=== PATIENT | male | born 1940 | race Native Hawaiian/Other Pacific Islander ===

== ENCOUNTER 2017-06-02 08:03 | Observation (INO) | payer MEDICARE, OTHER ==
[~2017-06-02] VITALS: Ht 170.2 cm; Wt 65.8 kg
[2017-06-02] VITALS (9 sets, daily range): BP systolic 90–129; BP diastolic 57–80; PULSE 82–97; RESP 16–21; O2SAT 97–100
--- NOTE | 2017-06-02 08:03 | ED.REPORT ---
HPI-General Illness Date of Service Jun 02, 2017 ED Provider: Haroon Ceja Patient is a 72 year old male with a hx of CAD, CHF, VT, and atrial tachyarrhythmias who presents to the ED via EMS complaining of dizziness onset this morning. He got up to use the restroom this morning when he felt dizzy and slumped to the floor. His son found him on the floor uninjured this morning. His dizziness is worse with his eyes open, moving, and sitting up. Associated symptoms include lightheadedness. He denies nausea, chest pain, SOB, headache, fever, cough, dysuria, or any other symptoms. Patient is a poor historian. Per records, he has been taking amiodarone for the past 12 days and this is his only filled prescription. Per son, he was recently hospitalized for fluid overload. He was seen by his mri specialist and PCP after his hospitalization and his medications were changed. He also had a recent sinus infection and was put on abx. 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 He has a [employer] Pacemaker Nursing Notes Stated Complaint: SYNCOPAL Nursing Notes Reviewed: Yes Allergies: Coded Allergies: No Known Allergies (Unverified , 06/02/17) Scheduled ([metoprolol XL]) 12.5 MG PO DAILY Amiodarone (Pacerone) 400 Mg Tablet 200 MG PO BID Furosemide (Lasix) 20 Mg Tablet 0 PO fridays Unknown dose Magnesium Oxide (Magnesium Oxide) 250 Mg Tablet 0 PO DAILY Rosuvastatin Calcium (Crestor) 5 Mg Tablet 0 PO DAILY / tab, unknown dose Rosuvastatin Calcium (Rosuvastatin Calcium) 5 Mg Tablet 0 PO DAILY General Time Seen by MD: 08:11 Chief Complaint Dizziness Hx Obtained From: Patient, Son Arrived By: Ambulance Sudden in Onset?: Yes Onset Occurred: 1 - 4 hours ago Symptom Duration: Since onset Recent Healthcare: Recent doctor visit, Recent hospitalization Similar Sx Previous: No Past Medical History Past Medical History Notes: PCP Héctor Hobbs [employer] [facility]. [facility] CODE STATUS: ATTEMPT CPR, no life support or intubation Past Medical History CAD CHF VT atrial tachyarrhythmias Past Surgical History CABG ablation Reports: Appendectomy Reports: Pacemaker insertion Smoking History Never Smoker Social History Alcohol Use: Denies alcohol use Review of Systems Full Review of Systems Constitutional: Denies: Fever Respiratory: Denies: Non-productive cough, Shortness of breath Cardiovascular: Denies: Chest pain GI: Denies: Nausea Male: Denies Dysuria Neurologic: Reports: Dizziness, Lightheaded, Denies: Headache Complete sys rev & neg: except as marked. Physical Exam Vital Signs Vital Signs Date Time Temp Pulse Resp B/P Pulse Ox O2 Delivery O2 Flow Rate FiO2 06/02/17 11:27 93 21 114/62 100 Room Air 06/02/17 09:17 91 18 129/80 99 Room Air 06/02/17 08:08 37.0 90 19 120/77 99 Room Air Initial VS: Reviewed, Vital signs normal Head / Eyes: Atraumatic, Normocephalic Neck: Full range of motion Abdomen / GI: Soft, Non-tender Skin: Warm, Dry Neurologic: Alert, Oriented, Nonfocal Psychiatric: Mood/affect normal, Behavior normal, Normal thought content General/Constitutional: Awake, Alert Distress / Hydration: Positive: Distress moderate Eyes closed Respiratory / Chest: No respiratory distress Rales in bases bilaterally Cardiovascular: Heart rate NL, Regular rhythm, Heart sounds NL Paced Interpretation & Diagnostics Lab Results Interpretation Result Diagram: 06/02/17 0830 06/02/17 0830 Test 06/02/17 08:30 White Blood Count 7.4th/mm3 (3.8-10.1) Red Blood Count 4.11mil/mm3 (4.40-5.80) Hemoglobin 13.7g/dL (13.8-17.2) Hematocrit 40.7% (41.0-50.0) Mean Corpuscular Volume 99.0fL (81-100) Mean Corpuscular Hemoglobin 33.3pg (27.0-35.0) Mean Corpuscular Hemoglobin Concent 33.7% (32.0-37.0) Red Cell Distribution Width 13.5% (12.3-15.4) Platelet Count 241bil/L (150-400) Neutrophils (%) (Auto) 76.9% (40-74) Lymphocytes (%) (Auto) 13.0% (14-46) Monocytes (%) (Auto) 9.3% (4-12) Eosinophils (%) (Auto) 0.4% (0-5) Basophils (%) (Auto) 0.3% (0-3) Prothrombin Time 13.1sec (8.1-12.5) Prothromb Time International Ratio 1.22ratio Sodium Level 139mEq/L (134-144) Potassium Level 4.8mEq/L (3.5-5.2) Chloride Level 103mEq/L (97-108) Carbon Dioxide Level 23mmol/L (18-29) Blood Urea Nitrogen 21mg/dL (8-27) Creatinine 1.61mg/dL (0.76-1.27) Estimat Glomerular Filtration Rate 45mL/min (>59) Glucose Level 109mg/dL (60-99) Calcium Level 8.9mg/dL (8.5-10.1) Magnesium Level 2.5mg/dL (1.6-2.6) Total Bilirubin 0.7mg/dL (0.0-1.2) Aspartate Amino Transf (AST/SGOT) 153U/L (0-50) Alanine Aminotransferase (ALT/SGPT) 189U/L (0-44) Alkaline Phosphatase 78U/L (25-160) Troponin T 0.032ug/L (0.0-0.011) Pro-B-Type Natriuretic Peptide 1139pg/mL (0-486) Total Protein 7.4g/dL (6.4-8.4) Albumin 3.6g/dL (3.4-5.0) ECG Interpretation ECG Interpretation: ventricularly paced at a rate of 89 Time: 08:22 Interpreted by: ED physician ECG Interpretation: Ventricular-paced at rate 90 Time: 10:17 Interpreted by: ED physician Repeat ECG: Repeat ECG unchanged X-Ray Chest Interpretation Chest Xray Interpretation: IMPRESSION: No acute cardiopulmonary disease. Dictated by: Patric Gill M.D. on 06/02/2017 at 9:45 Approved by: Patric Gill M.D. on 06/02/2017 at 9:46 View: Portable, 1 view Interpretation / Wet Read by: Interpret - Radiologist CT Head Interpretation IMPRESSION: 1. No acute intracranial disease process. 2. Severe mucosal thickening involving the left frontal sinus and left ethmoid air cells. Please correlate with clinical data to exclude sinusitis. Dictated by: Aida Paniagua MD, PhD on 06/02/2017 at 9:10 Approved by: Aida Paniagua MD, PhD on 06/02/2017 at 9:13 Study: Head CT no contrast Interpretation / Wet Read by: Interpret - Radiologist Re-Eval/Medical Decision Med Decision/Clinical Course Near syncope with an indeterminate troponin and an extensive cardiac history. Discussed with the patient's cardiology group through [facility] who recommended admission and observation. Aspirin given. Time of Eval: 10:48 Re-Evaluation/Progress Note: Rechecked pt who is feeling better. He passed his road test and was not dizzy during it. Time of Eval: 11:20 Re-Evaluation/Progress Note: Discussed plan for admisison. Patient understands and agrees with plan. All questions addressed at this time. Time of Eval: 11:58 Re-Evaluation/Progress Note: Discussed pt's code status. He would like CPR but not life support or intubation. Consultation #1: Consulted With: Cardiology Call Returned at: 11:11 Barrel Header: Agrees with eval, Agrees with plan Note: Discussed pt's case with On-call for patient's mri specialist. Have device interrogated, UA for UTI , and Observe and trend troponin. Suggests admit Consultation #2: Referral / Consult Name: Ryan Carver MD Consulted With: Hospitalist Call Returned at: 11:43 Barrel Header: Will see patient, Agrees with eval, Agrees with plan, Accepts admit Note: Discussed pt's case. Accepts admit. Counseled Regarding: Diagnosis, Lab results, Need for admission Discharge & Departure Primary Impression: Near syncope Disposition: ADMITTED TO HOSPITAL Discharge Condition All VS Reviewed: Yes Condition: Stable Referrals: OTHER,PHYSICIAN Scribe Attestation Portions of this note were transcribed by Jeanmarie Thakkar. I, Dr. Ceja personally performed the history, physical exam and medical decision-making; I reviewed and confirmed the accuracy of the information in the transcribed note. Signed by: Clarisse Morin, 06/02/17 Haroon Ceja DO Jun 02, 2017 08:03 JEANMARIE THAKKAR Jun 02, 2017 08:26
[2017-06-02] MEDS ORDERED: 0.9% Sodium Chloride 500 ML IV ONE (08:25)
[2017-06-02 08:46] LABS: BASOPHILS % (AUTO) 0.3 % (0-3); EOSINOPHILS % (AUTO) 0.4 % (0-5); MONOCYTES % (AUTO) 9.3 % (4-12); Mean Corpuscular Hemoglobin 33.3 pg (27.0-35.0); NEUTROPHILS % (AUTO) 76.9 % (40-74); Platelet Count 241 bil/L (150-400)
[2017-06-02] MEDS ORDERED: AMIO400T PO (08:56)
[2017-06-02 08:59] LABS: INR 1.22 ratio
[2017-06-02 09:07] LABS: TROPONIN T 0.032 ug/L (0.0-0.011)
--- NOTE | 2017-06-02 09:15 | DRSVH ---
PROCEDURE: CT BRAIN WITHOUT CONTRAST ([id number]) INDICATIONS: dizziness TECHNIQUE: Noncontrast 4.5 mm thick angled axial sections acquired from the foramen magnum to the vertex, with c oronal reformats. COMPARISON: None. FINDINGS: Image quality: Excellent. CSF spaces: Basal cisterns are patent. No extra-axial fluid collections. The ventricles are symmet kasi in size and shape. Brain: No intracranial bleeds or masses. There is cerebral volume loss for age, with resultant vent ricular and sulcal prominence. There are periventricular and deep white matter chronic small vessel ischemic changes. There is intracranial internal carotid artery and vertebral artery atherosclerosis . Skull and face: Calvarium and visualized facial bones appear intact, without suspicious lesions. Sinuses: Mucosal thickening noted in the left frontal sinus and the left ethmoid air cells.. mastoids are clear. IMPRESSION: 1. No acute intracranial disease process. 2. Severe mucosal thickening involving the left frontal sinus and left ethmoid air cells. Please del elate with clinical data to exclude sinusitis. Dictated by: Aida Paniagua MD, PhD on 06/02/2017 at 9:10 Approved by: Aida Paniagua MD, PhD on 06/02/2017 at 9:13
[2017-06-02 09:18] LABS: Magnesium 2.5 mg/dL (1.6-2.6)
--- NOTE | 2017-06-02 09:47 | DRSVH ---
PROCEDURE: X-RAY CHEST ONE VIEW, PORTABLE ([id number]) INDICATIONS: near syncope TECHNIQUE: One view of the chest was acquired. COMPARISON: None. FINDINGS: Surgical changes and devices: Sternotomy wires, CABG clips and cardiac AICD. Lungs and pleura: No pleural effusions or pneumothorax. Lungs are clear. Mediastinum: Mediastinal contours appear normal. Heart size is normal. Possible hiatal hernia alth ough this could BE confirmed with upper GI series as clinically necessary. Bones and chest wall: No suspicious bony lesions. Overlying soft tissues appear unremarkable. IMPRESSION: No acute cardiopulmonary disease. Dictated by: Patric Gill M.D. on 06/02/2017 at 9:45 Approved by: Patric Gill M.D. on 06/02/2017 at 9:46
[2017-06-02] MEDS ORDERED: FURO-129 PO (09:54)
[2017-06-02] MEDS ORDERED: METOPROLOL PO (09:54)
[2017-06-02] MEDS ORDERED: ROSU5TAB9 PO (09:54)
[2017-06-02] MEDS ORDERED: MAGN250T37 PO (09:54)
[2017-06-02] MEDS ORDERED: ROSU5TAB PO (09:54)
[2017-06-02] MEDS ORDERED: Ondansetron 2 mg/mL 2 mL Inj IVPUSH PRN (12:00)
[2017-06-02] MEDS ORDERED: Alum-Mag Hydrox-Simeth 30 mL Suspension PO PRN (12:00)
--- NOTE | 2017-06-02 14:00 | NUR ---
Admit Pt admitted to [facility] [place] 3003 at approx 1220 from the ED. Report received from Estelle Luis RN. Pt alert and oriented upon arrival. Arrived in ED cart, accompanied by interventional radiology technologist and son. Pt denies any chest pain, dizziness, headache. Able to answer admit questions with the help of son. VS and weight obtained. Oriented to room, bed, call light. Admit completed by this RN. Awaiting some details from a few of pt's home medications from son. Awaiting further orders. Bed low and locked. CAll light in reach.
[2017-06-02] MEDS ORDERED: AMIO200T PO (14:15)
[2017-06-02] MEDS ORDERED: FUR20 PO (14:17)
[2017-06-02] MEDS ORDERED: ASPI-973 PO (14:22)
[2017-06-02] MEDS ORDERED: MULT-1073 PO (14:23)
--- NOTE | 2017-06-02 15:18 | PCM.HPMED ---
Subjective Date of Service Jun 02, 2017 Primary Provider: Admitting Physician: Ryan Carver MD Primary Care Physician: Benson Reece MD Attending Physician: Ryan Carver MD Chief Complaint: Dizziness History of Present Illness: Patient is a 76 yo male with pmh of CAD (s/p quadraple bipass), VTs and Atrial tachyarrhythmias (s/p ablation and pacemaker , 100% paced), CHF (EF ~25% as per son), who is being admitted due to a spell of dizziness which started last night. As per patient and his son (bedside), patient woke up in the middle of night to go to bathroom, felt dizzy (room spinning + fear of passing out), crawled on the floor, pulled the blankets and slept there. In the morning, son found him like that. Tried to get him up, however he was still very dizzy. Patient does endorse feeling the room spinning around him. Denies nausea. Denies generalized weakness or palpitations. Denies falling or hitting his head. Patient was then taken by ambulance to ER. In ER he was given fluids and meclizine, and it helped with his dizziness. Allergies Coded Allergies: No Known Allergies (Unverified , 06/02/17) Constitutional: No: Chills, Fever, Malaise, Other, Sweats, Weakness Eyes: Denies: Blurred Vision, Conjunctive Inflammation, Double Vision, Eyelid Inflammation, Other, Pain, Pigmentosa, Redness, Retinitis, Vision Changes ENT: Denies: Dental Problems, Dysphagia, Ear Discharge, Ear Pain, Hoarseness, Membranes Dry, Nasal Congestion, Nose Discharge, Nose Pain, Other, Throat Pain, Tinnitus, Ulcers/Sores in Mouth Cardiovascular: Reports: Lt Headedness Respiratory: Denies: Cough, Hemoptysis, Other, Pleuritic Chest Pain, SOB with Exertion, Shortness of Breath, Sputum, Wheezing Gastrointestinal: Denies: Abdominal Pain, Change in Appetite, Constipation, Diarrhea, Heartburn, Hematochezia, Melena, Nausea, Other, Use of Laxatives, Vomiting Genitourinary: Denies: Anuria, Change in Frequency, Dysuria, Hematuria, Incontinence, Nocturia, Other, Retention Musculoskeletal: Denies: Back Pain, Deformity, Limitation of Function, Neck Pain, Other, Redness, Shoulder Pain, Swelling Skin: Denies: Bruising, Dry or Flakiness, Jaundice, Lesions, Other, Rash, Scars , Ulcers Neurological: Reports: Dizziness Psychologic: Denies: Agitation, Disorientation, Excitation, Giddiness, Hostile , Insomnia, Instability, [place], Nervousness, Night Terrors, Other, Perseveration , Phobia, Sexual Disturbances Endocrine: Denies: Change in Appitite, Diaphoresis, Intolerent to Heat/Cold, Polydipsea, Polyuria PMH CAD CHF VT atrial tachyarrhythmias Surgical History CABG ablation Reports: Appendectomy Reports: Pacemaker insertion Social History Hx Alcohol Use: No Hx Substance Use: No Smoking Status: Never Smoker Exam Vital Signs Vital Sign - Last Date Time Temp Pulse Resp B/P Pulse Ox O2 Delivery O2 Flow Rate FiO2 06/02/17 12:34 92 06/02/17 12:25 36.5 18 123/75 99 Room Air Exam Head / Eyes: Atraumatic, Normocephalic Neck: Full range of motion Abdomen / GI: Soft, Non-tender Skin: Warm, Dry Neurologic: Alert, Oriented, Nonfocal, Stacie halpike negative for nystagmus Psychiatric: Mood/affect normal, Behavior normal, Normal thought content General/Constitutional: Awake, Alert Lab and Diagnostics Result Diagram: 06/02/17 0830 06/02/17 0830 X-Rays, CTs and MRIs HEAD CT CT head IMPRESSION: 1. No acute intracranial disease process. 2. Severe mucosal thickening involving the left frontal sinus and left ethmoid air cells. Please correlate with clinical data to exclude sinusitis. Assessment & Plan Patient is a 76 yo male with pmh of CAD (s/p quadraple bipass), VTs and Atrial tachyarrhythmias (s/p ablation and pacemaker , 100% paced), CHF (EF ~25% as per son), who is being admitted due to a spell of dizziness which started last night. > Dizziness w vertigo - ddx: BPV vs arrhythmia vs orthostatic hypotension (2/2 dehydration) - considering patient's symptoms : likely positional vertigo, will get PT , continue meclizine - Tele monitoring , and evaluation of the pacemaker - patient is euvolemic at this point, will continue hydration by orals, and trend serum Cr. - CT head -ve for any acute intracranial process except for sinusitis - Labs not indicative of infection, however considering age and symptoms, urinalysis pending > KAUSHIK on CKD ? - serum cr elevated, baseline unknown, likely senior living CKD - will monitor cr > CHF , systolic (EF 25%) - will get echo to evaluate the heart function - patient euvolemic at this time, CXR not showing any signs of fluid overload - no edema - continue home regimen : lasix 10mg q weekly > VT and atrial arrhythmias - 100% paced, will get the pacemaker evaluated > CAD (s/p quadraple therapy) - continue home meds Pain Evaluation: Adequate Pain Control VTE Prophylaxis: Sub-Q Heparin (Unfractionated) Time spent 45 mins Ryan Carver MD Jun 02, 2017 14:23
[2017-06-02 16:44] LABS: APPEARANCE,URINE CLEAR (CLEAR,HAZY); COLOR,URINE YELLOW (YELLOW); OCCULT BLOOD,URINE TRACE (NEGATIVE); PH,URINE 6.5 (5.0-8.0); UROBILINOGEN,URINE NORMAL (NORMAL)
[2017-06-02] MEDS: Heparin 5,000 Unit/mL Inj SUBQ SCH (17:05)
--- NOTE | 2017-06-02 17:38 | DRSVH ---
[facility] [address] [place] [address] Echocardiogram Report Name: LENNY LAN CStudy Date: 06/02/2017 Height: 67 in Hospital Exam Location: [facility] Weight: 145 lb Gender: Male BSA: 1.8 m2 : 1940 Age: 76 yrs BP: 123/75 mmHg Reason For Study: Syncope Ordering Physician: Performed By: Ella Ramsey Interpretation Summary The left ventricle is moderately dilated. Left ventricular systolic function is severely reduced. The ejection fraction is estimated to be 15-20%. There is severe hypokinesis to akinesis along the inferolateral and inferior wall. There is moderate hypokinesis along the anterolateral wall. The rest of LV wall is mildly hypokinetic. The right ventricle is normal size. There is a pacemaker lead in the right ventricle. Right ventricular systolic function is at the lower limits of normal. The right ventricular systolic pressure is estimated at 28 mmHg assuming a right atrial pressure of 3 mm Hg. The left atrium is severely dilated. The right atrium is moderately dilated. There is mild to moderate aortic regurgitation. There is no other significant valvular heart disease. The aortic root is mildly dilated. Procedure: A two-dimensional transthoracic echocardiogram with color flow and Doppler was performed. The study quality was technically good. There is no prior echocardiogram noted for this patient. The patient has a paced rhythm. The heart rate ranged between 90-99 bpm during the study. Left Ventricle: The left ventricle is moderately dilated. There is normal left ventricular wall thickness. Left ventricular systolic function is severely reduced. The ejection fraction is estimated to be 15-20%. There is severe hypokinesis to akinesis along the inferolateral and inferior wall. There is moderate hypokinesis along the anterolateral wall. The rest of LV wall is mildly hypokinetic. Diastolic function could not be accurately assessed due to paced rhythm. Right Ventricle: The right ventricle is normal size. There is a pacemaker lead in the right ventricle. Right ventricular systolic function is at the lower limits of normal. Atria: The left atrium is severely dilated. The right atrium is moderately dilated. There is a catheter/pacemaker lead seen in the right atrium. The interatrial septum is intact with no evidence for an atrial septal defect. Mitral Valve: The mitral valve leaflets appear borderline thickened, but open well. There is trace mitral regurgitation. Aortic Valve: The aortic valve is trileaflet. The aortic valve opens well. There is mild to moderate aortic regurgitation. Tricuspid Valve: The tricuspid valve leaflets are thin and pliable. There is trace tricuspid regurgitation. The right ventricular systolic pressure is estimated at 28 mmHg assuming a right atrial pressure of 3 mm Hg. Pulmonic Valve: There is no pulmonic valvular regurgitation. There is no other significant valvular heart disease. Great Vessels: The aortic root is mildly dilated. The dimensions of the ascending aorta are normal. The IVC is of normal diameter and collapses greater than 50% with a sniff. This suggests a low right atrial pressure of 3 mm Hg. Pericardium/ Pleura There is no pericardial effusion. There is no pleural effusion. MMode/2D Measurements & Calculations LVIDd: 6.2 cm LA dimension: 4.7 cm RA long axis: 5.2 cm Ao root diam LVIDs: 5.5 cm FS: 12.5 % LA A2 area: 30.7 cm RA area: 21.8 cm Aortic Jxn: 2.9 cm IVSd: 0.84 cm LA A4 area: 29.4 cm RA vol: 77.5 ml asc Aorta Diam LVPWd: 0.99 cmLA length (vol) RA : 44.0 ml/m RVDd major: 5.9 cm Ao Arch Diam (Prox LA vol: 120.3 ml Trans): 2.6 cm LA vol index IVC diam: 1.5 cm EDV(MOD-sp2) LV garnica. diameter/BSA LV sys. diameter/BSA RVD1 (basal) (cm/m^2): 3.5 (cm/m^2): 3.1 : 3.7 cm ESV(MOD-sp2) EF(MOD-sp2) RVD2 (mid) : 3.1 cm Doppler Measurements & Calculations Ao V2 max MV P1/2t TR max david MV V2 mean : 114.7 cm/sec : 73.1 msec : 252.1 cm/sec : 26.3 cm/sec Ao max P.3 mmHg TR max PG MV mean PG Ao mean P.0 mmHg : 25.4 mmHg : 0.43 mmHg LVOT Max David PA V2 max MV V2 VTI : 46.5 cm/sec : 51.2 cm/sec : 13.4 cm sev ratio: 0.34 PA mean PG AI P1/2t: 415.5 msec : 0.56 mmHg AI dec slope PA Accel Time : 256.1 cm/s2c MV P1/2t max david Ao V2 mean LV V1 max PG PA V2 mean : 83.6 cm/sec : 35.1 cm/sec MVA(P1/2t): 3.0 cm2 Ao V2 VTI LV V1 VTI: 8.2 cm : 23.6 cm Reading Physician:CRISTIANE
[2017-06-03] MEDS: Heparin 5,000 Unit/mL Inj SUBQ SCH ×3 (01:31→16:04)
[2017-06-03 04:26] VITALS: BP 99/61; PULSE 89; RESP 16; O2SAT 98
--- NOTE | 2017-06-03 04:52 | NUR ---
Uneventful Night: Pt rested through the night with no complaints of chest pain or discomfort. Denies SOB, n/v. VSS. Tele: Paced in the 90's. Bed locked, low position. Call light within reach. Frequent rounding during the night. Pleasant and cooperative with care.
[2017-06-03] MEDS: MeTOProlol XL 25 mg ER24 Tablet PO SCH (08:30)
[2017-06-03] MEDS ORDERED: Non-Formulary Medication (Multivits-Min/FA/Lycopene/Lut (Centrum Silver Tablet) 1 EACH) PO SCH (08:30)
[2017-06-03] MEDS ORDERED: RIVA15TA PO (09:13)
--- NOTE | 2017-06-03 09:34 | NUR ---
Evaluation completed. Please go to "Notes" then click on "Assessments and Notes" (bottom left corner of screen). Then select appropriate discipline tab on top of screen.
[2017-06-03] MEDS ORDERED: CYAN500L3 PO (09:42)
[2017-06-03] MEDS ORDERED: OMEG500C PO (09:42)
[2017-06-03 09:49] VITALS: BP 93/57; PULSE 90; RESP 16; O2SAT 97
[2017-06-03 10:57] VITALS: PULSE 93
--- NOTE | 2017-06-03 12:21 | NUR ---
Case Management: OLGA and Medicare Part D delivered and explained to pt. and spouse. Signed original placed in chart. Copy left at bedside. Shari Aguilar RN
[2017-06-03 12:47] VITALS: BP 100/59; PULSE 95; RESP 16; O2SAT 97
--- NOTE | 2017-06-03 13:13 | PCM.PNMED ---
Subjective Date of Service Jun 03, 2017 Subjective Patient seen and examined. Feels better today. Vitals stable. Exam Vital Signs Vital Sign - Last Date Time Temp Pulse Resp B/P Pulse Ox O2 Delivery O2 Flow Rate FiO2 06/03/17 12:47 36.3 95 16 100/59 97 Room Air Intake and Output 06/02/17 06/02/17 06/03/17 Cumulative From/Thru 15:00 23:00 07:00 06/02/17 08:08 - 06/03/17 04:26 Intake Total 637 ml 450 ml 1087 ml Output Total 600 ml 850 ml 1450 ml Balance 37 ml -400 ml -363 ml Intake Oral 637 ml 450 ml 1087 ml Output Urine Total 600 ml 850 ml 1450 ml # Bowel Movements 0 0 Exam Head / Eyes: Atraumatic, Normocephalic Neck: Full range of motion Abdomen / GI: Soft, Non-tender Skin: Warm, Dry Neurologic: Alert, Oriented, Nonfocal, Prosper halpike + ve as per PT Psychiatric: Mood/affect normal, Behavior normal, Normal thought content General/Constitutional: Awake, Alert Lab and Diagnostics Result Diagram: 06/02/17 0830 06/03/17 0525 X-Rays, CTs and MRIs HEAD CT CT head IMPRESSION: 1. No acute intracranial disease process. 2. Severe mucosal thickening involving the left frontal sinus and left ethmoid air cells. Please correlate with clinical data to exclude sinusitis. Cardiac Echo Impressions The left ventricle is moderately dilated. Left ventricular systolic function is severely reduced. The ejection fraction is estimated to be 15-20%. There is severe hypokinesis to akinesis along the inferolateral and inferior wall. There is moderate hypokinesis along the anterolateral wall. The rest of LV wall is mildly hypokinetic. The right ventricle is normal size. There is a pacemaker lead in the right ventricle. Right ventricular systolic function is at the lower limits of normal. The right ventricular systolic pressure is estimated at 28 mmHg assuming a right atrial pressure of 3 mm Hg. The left atrium is severely dilated. The right atrium is moderately dilated. There is mild to moderate aortic regurgitation. There is no other significant valvular heart disease. The aortic root is mildly dilated. Assessment & Plan Patient is a 76 yo male with pmh of CAD (s/p quadraple bipass), VTs and Atrial tachyarrhythmias (s/p ablation and pacemaker , 100% paced), CHF (EF ~25% as per son), who is being admitted due to a spell of dizziness which started last night. > Dizziness w vertigo - ddx: BPV vs arrhythmia vs orthostatic hypotension (2/2 dehydration) - considering patient's symptoms : likely positional vertigo, PT saw the patient , recs: prosper-hallpike was tested on the L and was positive for L posterior canalithiasis, pt was treated using an linh's maneuver. Pt was provided a handout explaining BPPV; he was advised to avoid laying on his L side, and to keep his head elevated above 30-degrees. Based on this evaluation, PT anticipates pt will be able to return home pending symptom resolution from linh's maneuver. Pt is advised to ambulate with a walker all of the time secondary to his unsteady gait. If pt is to return home today, PT recommends 24/7 assistance for the first 48 hours. Pt would benefit from OPPT to recover his balance, functional strength, and mobility. - continue meclizine for now - patient is euvolemic at this point, will continue hydration by orals, and trend serum Cr. - CT head -ve for any acute intracranial process except for sinusitis - Labs not indicative of infection, however considering age and symptoms, urinalysis pending > KAUSHIK on CKD ? 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 VTE Prophylaxis: Sub-Q Heparin (Unfractionated) Time spent 35 mins Ryan Carver MD Jun 03, 2017 13:13
--- NOTE | 2017-06-03 14:29 | NUR ---
Pacer interrogation needed Patient has a previous pacer and admitted for near syncope. MD asked about interrogation being performed. Nurse and UA contacted [facility] to schedule a Interrogation. [facility] talked with nurse and stated he would be able to perform interrogation tomorrow 06/04/17 in the AM. MD was notified.
--- NOTE | 2017-06-03 14:34 | NUR ---
Social Work-initial assessment: Data:See initial assessment. Pt is a 76 y/o male who was admitted on 06/02/17 for near syncope per H&P. Pt's insurance is [employer] and PCP is Jami Reece MD. EMR Reviewed. SW met with pt at bedside to discuss discharge planning, SW role explained. Pt is alert and oriented x3. Pt resides at home with his son in [place] where he remains independent with ADLs. Pt drives and uses either a fww or cane at baseline. Pt has no HH or SNF history. Pt has no [facility] insurance or VA benefits. SW discussed DPOA/ advanced directive, pt has completed this paperwork, SW encouraged a copy to be brought in. PT has seen pt and recommended home with HH services. SW awaiting MD orders. SW provided pt with discharge planning checklist and encouraged him to call with any questions. SW provided phone number on white board in room. SW will continue to follow. Assessment:Pt who would benefit from HH services. Plan:Pt to discharge home when medically stable via POV. No MD orders yet for HH Services. SW will continue to follow. NICK Oleary Addendum: 06/03/17 at 1439 by HIWOT LINDO Amended: Links added.
[2017-06-03 17:01] VITALS: BP 93/59; PULSE 90; RESP 16; O2SAT 98
[2017-06-03 23:14] VITALS: PULSE 72
[2017-06-04 00:21] VITALS: BP 94/58; PULSE 91; RESP 16; O2SAT 98
[2017-06-04 05:06] VITALS: BP 126/75; PULSE 90; RESP 16; O2SAT 99
--- NOTE | 2017-06-04 05:57 | NUR ---
Uneventful Night: Pt rested through the night with no complaints of pain or discomfort. Denies SOB, n/v. VSS. Bed locked in lowest postion and 1PA for safety. Call light within reach, using appropriately. Frequent rounding in place. Pleasant and cooperative with care.
[2017-06-04 08:00] VITALS: PULSE 66
[2017-06-04] MEDS: MeTOProlol XL 25 mg ER24 Tablet PO SCH ×2 (08:30→10:30)
--- NOTE | 2017-06-04 08:33 | NUR ---
Social Work-readiness for discharge: Data:EMR Reviewed. Pt is on day 2 of hospitalization for near syncope per H&P. Pt is likely medically stable later today. PT has seen pt and is now recommending home with outpt PT services, no HH Services needed at this time. Pt's son to provide transport home at discharge. No anticipated discharge needs. SW will continue to follow if needs arise. Assessment:Pt who is independent at baseline. Plan:Pt to discharge home when medically stable via POV. No anticipated discharge needs. SW will continue to follow if needs arise. NICK Oleary
[2017-06-04 08:47] VITALS: BP 84/56; PULSE 88; RESP 18; O2SAT 97
--- NOTE | 2017-06-04 11:36 | NUR ---
Telemetry Patient has telemetry on. pest technician has called nurse to inform that patient has had several (around 6) different small runs of about 6-10 beats of V-Tach throughout the morning between [id number]. Nurse requested strips be printed and sent. [employer] sent heart monitor strips to nurse. was notified and given strips to assess as interrogation showed no V-tach this morning since early May. Patient remained asymptomatic with each episode.
--- NOTE | 2017-06-04 12:18 | PCM.DIMED ---
Discharge Instructions Date of Service Jun 04, 2017 Dates of Hospitalization Jun 02, 2017 at 12:12 Discharge Diagnosis Discharge Diagnosis BPPV CHF Diet Discharge Diet: Low fat, Low Sodium Activity Discharge Activity: Limited until seen by PCP Call your provider Call your provider for: Shortness of breath, Weakness (unilateral) Patient Instructions Follow-up plan Outpatient PT Follow-up with PCP in: 1 week Ryan Carver MD Jun 04, 2017 12:18
[2017-06-04 12:52] VITALS: BP 104/64; PULSE 90; RESP 18; O2SAT 99
[2017-06-04] MEDS ORDERED: Meclizine Hcl PO (14:54)
--- NOTE | 2017-06-04 15:01 | PCM.DC.MED ---
Discharge Summary Date of Service Jun 04, 2017 Dates of Hospitalization Date of Hospital Admission Jun 02, 2017 at 12:12 Date of Discharge: Jun 04, 2017 Providers: Admitting Physician: Geronimo Carver MD Primary Care Physician: Benson Reece MD Attending Physician: Geronimo Carver MD Diagnosis at Time of Discharge Diagnosis at Time of Discharge BPPV CHF Procedures XRay, CTs & MRIs HEAD CT CT head IMPRESSION: 1. No acute intracranial disease process. 2. Severe mucosal thickening involving the left frontal sinus and left ethmoid air cells. Please correlate with clinical data to exclude sinusitis. Cardiac Echo Impression The left ventricle is moderately dilated. Left ventricular systolic function is severely reduced. The ejection fraction is estimated to be 15-20%. There is severe hypokinesis to akinesis along the inferolateral and inferior wall. There is moderate hypokinesis along the anterolateral wall. The rest of LV wall is mildly hypokinetic. The right ventricle is normal size. There is a pacemaker lead in the right ventricle. Right ventricular systolic function is at the lower limits of normal. The right ventricular systolic pressure is estimated at 28 mmHg assuming a right atrial pressure of 3 mm Hg. The left atrium is severely dilated. The right atrium is moderately dilated. There is mild to moderate aortic regurgitation. There is no other significant valvular heart disease. The aortic root is mildly dilated. Brief History Patient is a 76 yo male with pmh of CAD (s/p quadraple bipass), VTs and Atrial tachyarrhythmias (s/p ablation and pacemaker , 100% paced), CHF (EF ~25% as per son), who is being admitted due to a spell of dizziness which started last night. As per patient and his son (bedside), patient woke up in the middle of night to go to bathroom, felt dizzy (room spinning + fear of passing out), crawled on the floor, pulled the blankets and slept there. In the morning, son found him like that. Tried to get him up, however he was still very dizzy. Patient does endorse feeling the room spinning around him. Denies nausea. Denies generalized weakness or palpitations. Denies falling or hitting his head. Patient was then taken by ambulance to ER. In ER he was given fluids and meclizine, and it helped with his dizziness. Hospital Course Patient is a 76 yo male with pmh of CAD (s/p quadraple bipass), VTs and Atrial tachyarrhythmias (s/p ablation and pacemaker , 100% paced), CHF (EF ~25% as per son), who is being admitted due to a spell of dizziness which started last night. > Dizziness w vertigo - ddx: BPV vs arrhythmia vs orthostatic hypotension (2/2 dehydration) - considering patient's symptoms : likely positional vertigo, PT saw the patient , recs: prosper-hallpike was tested on the L and was positive for L posterior canalithiasis, pt was treated using an linh's maneuver. Pt was provided a handout explaining BPPV; he was advised to avoid laying on his L side, and to keep his head elevated above 30-degrees. Based on this evaluation, PT anticipates pt will be able to return home pending symptom resolution from linh's maneuver. Pt is advised to ambulate with a walker all of the time secondary to his unsteady gait. If pt is to return home today, PT recommends 24/7 assistance for the first 48 hours. Pt would benefit from OPPT to recover his balance, functional strength, and mobility. - continue meclizin - patient euvolemic - CT head -ve for any acute intracranial process except for sinusitis - Labs not indicative of infection, however considering age and symptoms, urinalysis pending > KAUSHIK on CKD ? - serum cr elevated, baseline unknown, likely jail CKD - Cr improved > CHF , systolic (EF 15-20%) - Echo as noted above - known diagnosis - patient euvolemic at this time, CXR not showing any signs of fluid overload - no edema - continue home regimen : lasix 10mg q weekly > VT and atrial arrhythmias - 100% paced - pacemaker interogated, no Vfib/Vtachs noticed - tele monitoring reported non sustained vtach, asymptotic, discussed with [facility] personel, chronic issue > CAD (s/p quadraple therapy) - continue home meds Dispo : Home with outpatient follow up . Exam Vital Signs (Last) Date Time Temp Pulse Resp B/P Pulse Ox O2 Delivery O2 Flow Rate FiO2 06/04/17 12:52 36.6 90 18 104/64 99 Room Air Test 06/02/17 08:30 06/02/17 16:28 06/03/17 05:25 White Blood Count 7.4th/mm3 (3.8-10.1) Red Blood Count 4.11mil/mm3 (4.40-5.80) Hemoglobin 13.7g/dL (13.8-17.2) Hematocrit 40.7% (41.0-50.0) Mean Corpuscular Volume 99.0fL (81-100) Mean Corpuscular Hemoglobin 33.3pg (27.0-35.0) Mean Corpuscular Hemoglobin Concent 33.7% (32.0-37.0) Red Cell Distribution Width 13.5% (12.3-15.4) Platelet Count 241bil/L (150-400) Neutrophils (%) (Auto) 76.9% (40-74) Lymphocytes (%) (Auto) 13.0% (14-46) Monocytes (%) (Auto) 9.3% (4-12) Eosinophils (%) (Auto) 0.4% (0-5) Basophils (%) (Auto) 0.3% (0-3) Prothrombin Time 13.1sec (8.1-12.5) Prothromb Time International Ratio 1.22ratio Magnesium Level 2.5mg/dL (1.6-2.6) Total Bilirubin 0.7mg/dL (0.0-1.2) Aspartate Amino Transf (AST/SGOT) 153U/L (0-50) Alanine Aminotransferase (ALT/SGPT) 189U/L (0-44) Alkaline Phosphatase 78U/L (25-160) Troponin T 0.032ug/L (0.0-0.011) Pro-B-Type Natriuretic Peptide 1139pg/mL (0-486) Total Protein 7.4g/dL (6.4-8.4) Albumin 3.6g/dL (3.4-5.0) Urine Color Yellow (YELLOW) Urine Appearance Clear (CLEAR,HAZY) Urine pH 6.5 (5.0-8.0) Urine Specific [place] 1.020 (1.003-1.035) Urine Protein Negativemg/dL (NEG,TRACE) Urine Glucose (UA) Negativemg/dL (NEGATIVE) Urine Ketones Negativemg/dL (NEGATIVE) Urine Occult Blood Trace (NEGATIVE) Urine Nitrite Negative (NEGATIVE) Urine Bilirubin Negative (NEGATIVE) Urine Urobilinogen Normalmg/dL (NORMAL) Urine Leukocyte Esterase Negative (NEGATIVE) Urine RBC 0-2/hpf (0-2) Urine WBC 0-5/hpf (0-5) Urine Epithelial Cells None/hpf (NONE-MOD) Urine Crystals None seen (NONE SEEN) Urine Bacteria Few/hpf (NONE-FEW) Urine Hyaline Casts None/lpf (NONE) Urine Granular Casts None seen (NONE SEEN) Urine Waxy Casts None seen (NONE SEEN) Urine Red Blood Cell Casts None seen (NONE SEEN) Urine White Blood Cell Casts None seen (NONE SEEN) Urine Mucus None seen (None Seen) Urine Trichomonas None seen (NONE SEEN) Urine Yeast None (NONE SEEN) Urinalysis Comment None Urine Culture Reflexed Not indicated Sodium Level 139mEq/L (134-144) Potassium Level 4.3mEq/L (3.5-5.2) Chloride Level 103mEq/L (97-108) Carbon Dioxide Level 23mmol/L (18-29) Blood Urea Nitrogen 16mg/dL (8-27) Creatinine 1.31mg/dL (0.76-1.27) Estimat Glomerular Filtration Rate 57mL/min (>59) Glucose Level 87mg/dL (60-99) Calcium Level 8.5mg/dL (8.5-10.1) Discharge Medications Discharge Medications ([metoprolol XL]) 25 mg 12.5 MG PO DAILY (Reported) Amiodarone (Amiodarone) 200 Mg Tablet 200 MG PO BID (Reported) Aspirin (Aspirin) 81 Mg Tablet 81 MG PO DAILY (Reported) Cyanocobalamin (Vitamin B-12) (B-12) 500 Mcg Tab.rapdis 100 MCG PO DAILY ( Reported) Furosemide (Furosemide) 20 Mg Tab 10 MG PO Thursday (Reported) Magnesium Oxide (Magnesium Oxide) 250 Mg Tablet 0 PO DAILY (Reported) Multivits-Min/FA/Lycopene/Lut (Centrum Silver Tablet) 1 Each Tablet 1 EACH PO DAILY (Reported) [place]-3 Fatty Acids (Fish Oil) 500 Mg Capsule.dr 1,000 MG PO DAILY (Reported) Rivaroxaban (Xarelto) 15 Mg Tablet 15 MG PO MORNING (Reported) Rosuvastatin Calcium (Crestor) 5 Mg Tablet 10 MG PO HS (Reported) As needed ([Meclizine Hcl]) 25 MG TABLET 25 MG PO TID PRN PRN vertigo Prescribed by: GERONIMO CARVER MD Followup Plan Follow-up plan Outpatient PT Discharge Diet: Low fat, Low Sodium Discharge Activity: Limited until seen by PCP Follow-up with PCP in: 1 week Time spent 35 mins Geronimo Carver MD Jun 04, 2017 15:01
--- NOTE | 2017-06-04 15:41 | NUR ---
Discharge Patient given discharge orders. Patient IV removed fully intact and asymptomatic. Patient telemetry removed and telemetry monitor called. Patient given hard copy of prescription. Patient given medication list with times of next due written. Patient given follow up instructions. Patient son in room at time of discharge. Patient assisted to main entrance via wheelchair by staff.
--- NOTE | 2017-06-04 15:45 | NUR ---
Social Work-discharge: Data:EMR reviewed. Pt is on day 2 of hospitalization for near syncope per H&P. Pt is medically stable for discharge. PT has cleared pt for home with outpt PT services. Pt resides at home with son and son will provide transport home. No discharge needs identified. All updated and agreeable to plan. Assessment:pt who is independent at baseline. Plan:Pt to discharge home today via POV. No discharge needs identified. All updated and agreeable to plan. NICK Oleary
== END 2017-06-04 15:44 | disposition home or self-care (01) ==
LOC: SED 08:03 → EDBD 08:03 → SED 12:07 → MPC 12:12
PROVIDERS: ADMIT Internal Medicine; ATTEND Internal Medicine
DX: H81.10 Benign paroxysmal vertigo, unspecified ear (principal); I50.20 Unspecified systolic (congestive) heart failure; R79.89 Other specified abnormal findings of blood chemistry; I25.10 Atherosclerotic heart disease of native coronary artery without angina pectoris; Z95.1 Presence of aortocoronary bypass graft; I47.1 Supraventricular tachycardia; I47.2 Ventricular tachycardia; Z79.899 Other long term (current) drug therapy; Z95.0 Presence of cardiac pacemaker; Z98.890 Other specified postprocedural states
CPT/HCPCS: 36415; 70450; 71010; 80048; 80053; 81000; 83735; 83880; 84484; 85025; 85610; 93005; 96372; 97162; 97530; 99285; C8929; G0378; G8978; G8979; J1644; J7040